=== PATIENT | female | born 1980 | race Hispanic/Latino ===

== ENCOUNTER 2021-10-23 21:22 | Emergency (ER) | payer MEDICARE ==
[~2021-10-23] VITALS: Ht 154.9 cm; Wt 66.2 kg
[~2021-10-23 21:22] MED LIST: ALPRAZOLAM; BUSPIRONE HCL5 MG PO; KLONOPIN1 MG PO; PREDNISONE10 MG PO; PROZAC20 MG PO; SEROQUEL25 MG PO; Z.0.ABILIFY5 MG PO; Z.0.AMBIEN10 MG PO; Z.0.KLONOPIN2 MG PO; Z.0.LEXAPRO20 MG PO; Z.0.PLAQUENIL200 MG PO
[2021-10-23] MEDS ORDERED: KETOROLAC TROMETHAMINE 30 MG/ML VIAL IM STA (21:34)
== END 2021-10-23 21:43 | disposition home or self-care (01) ==
LOC: ER 21:40
DX: M54.50 Low back pain, unspecified (principal); M79.602 Pain in left arm; R20.0 Anesthesia of skin; M32.9 Systemic lupus erythematosus, unspecified; M79.7 Fibromyalgia; F41.9 Anxiety disorder, unspecified
CPT/HCPCS: 93005; 99282; J1885

== ENCOUNTER 2023-01-28 18:10 | Emergency (ER) | payer MEDICARE ==
[~2023-01-28] VITALS: Ht 154.9 cm; Wt 66.2 kg
[~2023-01-28 18:10] MED LIST changes: +ONDANSETRON ODT4 MG PO
[2023-01-28] MEDS ORDERED: ONDANSETRON HCL INJ 2MG/ML 2ML 2 MG/ML VIAL IV STA (18:44)
[2023-01-28] MEDS ORDERED: SODIUM CHLORIDE 0.9% 1000ML 1,000 ML IV ONE (18:45)
[2023-01-28] MEDS ORDERED: ACETAMINOPHEN 325 MG TAB PO ONE (18:45)
[2023-01-28 19:09] LABS: BASOPHILS % 0.2 % (0.0-1.0); EOSINOPHILS # (AUTO) 0.1 (0.0-0.4); HEMATOCRIT 37.8 % (34.2-44.1); LYMPHOCYTES # (AUTO) 1.7 (1.0-3.2); LYMPHOCYTES % 16.9 % (18.0-39.1); MEAN CORPUSCULAR HEMOGLOBIN 31.3 pg (28-32); MEAN CORPUSCULAR HGB CONC 34.4 g/dL (31-35); MEAN CORPUSCULAR VOLUME 90.9 fL (81-99); MONOCYTES # (AUTO) 0.7 (0.2-0.8); MONOCYTES % 7.3 % (4.4-11.3); NEUTROPHILS # (AUTO) 7.6 (2.1-6.9); NEUTROPHILS % 74.3 % (38.7-80.0); PLATELET COUNT 320 x10e3/uL (140-360); RED BLOOD COUNT 4.16 x10e6/uL (3.6-5.1); RED CELL DISTRIBUTION WIDTH 13.2 % (11.7-14.4)
[2023-01-28 19:27] LABS: ALANINE AMINOTRANSFERASE 20 IU/L (0-55); ALBUMIN 3.6 g/dL (3.5-5.0); ALBUMIN/GLOBULIN RATIO 1.1 (0.8-2.0); ALKALINE PHOSPHATASE 69 IU/L (40-150); ANION GAP 14.2 mmol/L (8-16); BLOOD UREA NITROGEN 10 mg/dL (7-26); BUN/CREATININE RATIO 14 (6-25); CALCIUM 8.4 mg/dL (8.4-10.2); CARBON DIOXIDE 26 mmol/L (22-29); CHLORIDE 104 mmol/L (98-107); CREATINE KINASE 92 IU/L (29-168); CREATININE, SERUM 0.72 mg/dL (0.57-1.11); GLUCOSE 120 mg/dL (74-118); POTASSIUM 3.2 mmol/L (3.5-5.1); SODIUM 141 mmol/L (136-145)
[2023-01-28 19:39] LABS: CLARITY,URINE SL CLOUDY (CLEAR); COLOR,URINE YELLOW (YELLOW); KETONES,URINE NEGATIVE (NEGATIVE); LEUKOCYTE ESTERASE ,URINE SMALL (NEGATIVE); NITRITE,URINE NEGATIVE (NEGATIVE); PROTEIN,URINE DIPSTICK 1+ (NEGATIVE); URINE UROBILINOGEN 0.2 mg/dL (0.2 - 1)
[2023-01-28 19:46] LABS: BACTERIA,URINE MODERATE /HPF
[2023-01-28] MEDS ORDERED: ONDANSETRON ODT4 MG PO (21:22)
[2023-01-28] MEDS ORDERED: METRONIDAZOLE500 MG PO (21:22)
[2023-01-28] MEDS ORDERED: DICYCLOMINE HCL20 MG PO (21:22)
[2023-01-28] MEDS ORDERED: CIPRO500 MG PO (21:22)
[2023-01-28] MEDS ORDERED: IOPAMIDOL 370 MG/ML 100 ML INFUS..BTL INJ ONE (21:25)
[2023-01-28 21:43] VITALS: BP 112/67; PULSE 95; RESP 17; TEMP 99.7; O2SAT 99
== END 2023-01-28 21:41 | disposition home or self-care (01) ==
LOC: ER 18:16
DX: R50.9 Fever, unspecified (principal); K52.9 Noninfective gastroenteritis and colitis, unspecified; R11.2 Nausea with vomiting, unspecified; R10.32 Left lower quadrant pain; R10.31 Right lower quadrant pain; M32.9 Systemic lupus erythematosus, unspecified; F41.9 Anxiety disorder, unspecified; M79.7 Fibromyalgia
CPT/HCPCS: 36415; 74177; 80053; 81001; 82550; 82553; 83605; 83690; 84484; 84702; 85025; 87040; 87086; 93005; 99284; J0692; J2405; J7030; Q9967

== ENCOUNTER 2024-08-10 17:59 | Emergency (ER) | payer MEDICARE ==
[~2024-08-10] VITALS: Ht 154.9 cm; Wt 66.2 kg
[~2024-08-10 17:59] MED LIST changes: +CIPRO500 MG PO; +DICYCLOMINE HCL20 MG PO; +METRONIDAZOLE500 MG PO
[2024-08-10 18:06] VITALS: TEMP 98.3
[2024-08-10] MEDS: ACETAMINOPHEN 325 MG TAB PO STA (18:25)
[2024-08-10 20:43] VITALS: PULSE 97; RESP 16
[2024-08-10 20:57] VITALS: BP 129/86; PULSE 97; RESP 16; O2SAT 99
== END 2024-08-10 20:41 | disposition home or self-care (01) ==
LOC: ER 18:14
DX: S00.83XA Contusion of other part of head, initial encounter (principal); R07.89 Other chest pain; V43.52XA Car driver injured in collision with other type car in traffic accident, initial encounter; Y92.488 Other paved roadways as the place of occurrence of the external cause; M32.9 Systemic lupus erythematosus, unspecified; F41.9 Anxiety disorder, unspecified; F32.A Depression, unspecified; M79.7 Fibromyalgia
CPT/HCPCS: 70450; 71045; 72125; 99284

== ENCOUNTER 2024-12-09 13:08 | Emergency (ER) | payer MEDICARE ==
[~2024-12-09] VITALS: Ht 154.9 cm; Wt 86.2 kg
[2024-12-09 13:26] VITALS: PULSE 80; RESP 16; TEMP 98.5; O2SAT 100
[2024-12-09] MEDS ORDERED: NAPROXEN250 MG PO (15:05)
== END 2024-12-09 15:43 | disposition home or self-care (01) ==
LOC: ER 13:44
DX: R20.2 Paresthesia of skin (principal); M32.9 Systemic lupus erythematosus, unspecified; F41.9 Anxiety disorder, unspecified; F32.A Depression, unspecified; M79.7 Fibromyalgia
CPT/HCPCS: 70450; 72125; 99284